=== PATIENT | female | born 1970 | race Caucasian/White ===

== ENCOUNTER 2016-08-21 17:42 | Emergency (ER) | payer SELFPAY ==
[2016-08-21 17:53] VITALS: BMI 28.3
[2016-08-21] MEDS ORDERED: ALBUTEROL SO4 2.5/IPRATROPIUM 0.5 INH SOL 3 ML VIAL.NEB. NEB STA ×2 (19:30→19:31)
[2016-08-21] MEDS ORDERED: predniSONE 20 MG TABLET (UD) PO ONE (19:30)
--- NOTE | 2016-08-21 19:30 | PDOC ---
History of Present Illness - General History Source: Patient Exam Limitations: No Limitations - History of Present Illness Initial Comments: 08/21/16 20:05 The patient is a 45-year-old female, with a significant past medical history of asthma, who presents to the ED with one week of shortness of breath and sore throat. The patient also reports having a productive cough of yellow sputum, fever, chills, and body aches. The patient denies any nausea, vomiting, diarrhea, or abdominal pain. The patient denies any chest pain. The patient denies tobacco, alcohol, or drug use. <Merari Altamirano - Last Filed: 08/21/16 20:05> - General History Source: Patient <Flaco Goel - Last Filed: 08/21/16 21:11> - General Chief Complaint: Asthma Stated Complaint: RESPIRATORY Time Seen by Provider: 08/21/16 19:30 Past History <Merari Altamirano - Last Filed: 08/21/16 20:05> - Past Medical History Asthma: Yes - Psycho/Social/Smoking Cessation Hx Anxiety: No Suicidal Ideation: No Smoking History: Never smoked Have you smoked in the past 12 months: No Information on smoking cessation initiated: No Hx Alcohol Use: No Drug/Substance Use Hx: No <Flaco Goel - Last Filed: 08/21/16 21:11> - Past Medical History Allergies/Adverse Reactions: Allergies Allergy/AdvReac Type Severity Reaction Status Date / Time No Known Allergies Allergy Verified 08/21/16 17:50 Home Medications: Ambulatory Orders Albuterol Sulfate Inhaler - [Ventolin HFA Inhaler -] 2 inh IH Q6H #1 inh Azithromycin [Zithromax -] 250 mg PO UTDICT #6 tab 08/21/16 Prednisone [Deltasone -] 40 mg PO DAILY #14 tablet 08/21/16 Review of Systems - Review of Systems Able to Perform ROS?: Yes Comments:: 08/21/16 20:05 CONSTITUTIONAL: Present: fever, body aches Absent: no chills, no fatigue EYES: Absent: visual changes ENT: Absent: ear pain CARDIOVASCULAR: Absent: chest pain, no palpitations RESPIRATORY: Present: cough, SOB, sore throat GI: Absent: abdominal pain, no nausea, no vomiting, no constipation, no diarrhea GENITOURINARY: Absent: dysuria, no frequency, no hematuria MUSKULOSKELETAL: Absent: back pain, no arthralgia, no myalgia SKIN: Absent: rash NEURO: Absent: headache <Merari Altamirano - Last Filed: 08/21/16 20:05> *Physical Exam - Vital Signs Last Vital Signs Temp Pulse Resp BP Pulse Ox 98.7 F 75 18 149/96 100 08/21/16 17:50 08/21/16 17:50 08/21/16 17:50 08/21/16 17:50 08/21/16 17:50 - Physical Exam Comments: 08/21/16 20:07 Well developed, well nourished. Awake and alert. No acute distress. HEENT: Normocephalic, atraumatic. PERRLA, EOMI. No conjunctival pallor. Sclera are non- icteric. Moist mucous membranes. Oropharynx is clear. No drooling. +Hoarse voice. NECK: Supple. Full ROM. No JVD. Carotid pulses 2+ and symmetric, without bruits. No thyromegaly. No lymphadenopathy. CARDIOVASCULAR: Regular rate and rhythm. No murmurs, rubs, or gallops. Distal pulses are 2+ and symmetric. PULMONARY: No rales or rhonchi. +Coarse bilateral wheezing. ABDOMINAL: Soft. Non-tender. Non-distended. No rebound or guarding. No organomegaly. Normoactive bowel sounds. MUSCULOSKELETAL Normal range of motion at all joints. No bony deformities or tenderness. No CVA tenderness. EXTREMITIES: No cyanosis. No clubbing. No edema. No calf tenderness. SKIN: Warm and dry. Normal capillary refill. No rashes. No jaundice. NEUROLOGICAL: Alert, awake, appropriate. PSYCHIATRIC: Cooperative. Good eye contact. Appropriate mood and affect. <Merari Altamirano - Last Filed: 08/21/16 20:05> - Vital Signs Last Vital Signs Temp Pulse Resp BP Pulse Ox 98.7 F 75 18 149/96 100 08/21/16 17:50 08/21/16 17:50 08/21/16 17:50 08/21/16 17:50 08/21/16 17:50 <Flaco Goel - Last Filed: 08/21/16 21:11> Medical Decision Making - Medical Decision Making 08/21/16 20:35 Dr. Goel: The scribe's documentation has been prepared under my direction and personally reviewed by me in its entirery. I confirm that the note above accurately reflects all work, treatment, procedures, and medical decision making performed by me. <Flaco Goel - Last Filed: 08/21/16 21:11> *DC/Admit/Observation/Transfer - Attestations Scribe Attestion: 08/21/16 20:09 Documentation prepared by Merari Altamirano, acting as medical dermatologist for Flaco Goel MD. <Merari Altamirano - Last Filed: 08/21/16 20:05> - Discharge Dispostion Admit: No <Flaco Goel - Last Filed: 08/21/16 21:11> Diagnosis at time of Disposition: Asthma Qualifiers: Asthma severity: unspecified severity Asthma complication type: uncomplicated Qualified Code(s): J45.909 - Unspecified asthma, uncomplicated - Discharge Dispostion Disposition: HOME Condition at time of disposition: Stable - Prescriptions Prescriptions: Prednisone [Deltasone -] 40 mg PO DAILY #14 tablet Albuterol Sulfate Inhaler - [Ventolin HFA Inhaler -] 2 inh IH Q6H #1 inh Azithromycin [Zithromax -] 250 mg PO UTDICT #6 tab - Referrals Referrals: Kirt Beaver MD [Staff Physician] - - Patient Instructions Printed Discharge Instructions: Asthma -- Adult
[2016-08-21] MEDS ORDERED: AZITHROMYCIN 250 MG TABLET (FP) PO STA (19:31)
[2016-08-21] MEDS ORDERED: ALBUTEROL SO4 2.5/IPRATROPIUM 0.5 INH SOL 3 ML VIAL.NEB. NEB ONE (20:34)
[2016-08-21] MEDS ORDERED: AZITHROMYCIN 250 MG TABLET (FP) ONE (20:34)
[2016-08-21] MEDS ORDERED: predniSONE 20 MG TABLET (UD) ONE (20:34)
[2016-08-21 21:35] VITALS: BP 144/89; PULSE 73; TEMP 98.5
== END 2016-08-21 21:10 | disposition home or self-care (01) ==
LOC: JER 17:42
PROC: 3E0F7GC Introduction of Other Therapeutic Substance into Respiratory Tract, Via Natural or Artificial Opening (ICD-10-PCS; principal; 2016-08-21)
DX: J45.909 Unspecified asthma, uncomplicated (principal)
CPT/HCPCS: 99282-25